=== PATIENT | female | born 1945 | race Caucasian/White ===

== ENCOUNTER 2020-04-22 15:33 | Outpatient (CLI) | payer MEDICARE ==
--- NOTE | 2020-04-22 17:47 | RAD ---
PA AND LATERAL VIEWS OF THE CHEST: 04/22/20 HISTORY: Aspiration pneumonitis. COMPARISON: 09/29/13. FINDINGS: The heart size is normal. The lungs are expanded without lobar consolidation, pneumothoraces, or pleu ral effusions. There are mild degenerative changes in the spine. IMPRESSION: No radiographic evidence of acute cardiopulmonary process. POS: AH
== END 2020-04-22 15:34 | disposition home or self-care (01) ==
LOC: BICRAD 15:33
PROVIDERS: ATTEND Physician Assistant Medical
DX: J69.0 Pneumonitis due to inhalation of food and vomit (principal); K59.00 Constipation, unspecified
CPT/HCPCS: 71046